=== PATIENT | male | born 1985 | race Caucasian/White ===

== ENCOUNTER 2019-01-27 07:27 | Outpatient (CLI) | payer OTHER ==
--- NOTE | 2019-01-27 13:41 | MRI Report ---
Reason: WEAKNESS Procedure Date: 01/27/2019 Accession Number: [id number] / [id number] Procedure: MRI - Hand RT W/WO CPT Code: Final Report FULL RESULT: EXAM: RIGHT HAND MRI WITHOUT AND WITH CONTRAST EXAM DATE: 01/27/2019 09:00 AM. CLINICAL HISTORY: Weakness, trauma 2-3 months ago. COMPARISON: None. TECHNIQUE: Multiplanar, multisequence T1-weighted and fluid-sensitive sequences of the hand before and after administration of intravenous contrast. IV contrast: 9 cc Gadavist. Other: None. FINDINGS: Bones and articular surfaces: Marrow signal appears within normal limits. No acute fracture identified. No destructive bone lesion. No significant joint effusion. Lobulated partially visualized cystic structure visualized anterior to the first CMC articulation most likely ganglion cyst approximately 1.7 x 0.9 x 1.7 cm. Musculotendinous structures: Visualized flexor and extensor tendons appear intact without evidence of significant tendinosis or tenosynovitis. No significant muscle edema, atrophy or fatty replacement within the field of view. IMPRESSION: 1. Ganglion cyst anterior to the first CMC articulation. RADIA
== END 2019-01-27 07:28 | disposition home or self-care (01) ==
LOC: DI 07:27
DX: M67.441 Ganglion, right hand (principal)
CPT/HCPCS: 73220; A9585

== ENCOUNTER 2022-06-26 09:44 | Outpatient (CLI) | payer OTHER ==
[2022-06-26 10:20] VITALS: BP 130/72
--- NOTE | 2022-06-26 10:20 | SLEEP CARE CONSULTATION ---
Information from patient questionnaire entered by Radha Foster. I have reviewed and concur with the information entered by Radha Foster. This document represents the service I personally performed and the decisions made by me, Echo Stout ARNP. History of Present Illness Service Date and Time: 06/26/2022 0944 Reason for Visit: New patient Chief Complaint: reports: Unrefreshed sleep, Snoring, Excessive daytime sleepiness, Observed pauses in breathing, Frequent awakenings at night Date of Onset: AT LEAST THREE YRS Usual bedtime: 10PM SOMETIMES 11-1130PM Time it takes to fall asleep: DEPENDS FAST CAUSE IM EXHAUSTED Snores at night: Yes Observed to quit breathing while asleep: No Sleeps alone due to snoring: Yes Number of times waking at night: CAN NOT COUNT TO MANY Reasons for waking at night: reports: Snoring, Other (NOISE UNKNOWN). denies: Choking, Gasping for air Toss, Turn, or Twitch while sleeping: Yes Recalls having dreams: No Usually gets out of bed at: 4-5AM Feels refreshed in the morning: No Morning headache: No Sleepy or fatigued during the day: Yes Ever fallen asleep while driving: Yes (drowsy driving, no accidents) Takes day naps: No Prior sleep studies: No Additional HPI information: I had the pleasure of seeing SERGIO MARTINEZ today regarding the possibility of him having a sleep disorder. His current complaints are excessive daytime sleepiness, frequent night awakenings, observed pauses in breathing, snoring and unrefreshed sleep. He wakes up frequently and does not sleep through the night. He wakes up tired all the time. His has told him that he snores loudly and has had to sleep separately to allow her to sleep better. She has also told him that he has stopped breathing when sleeping. He states he also has 12 children and is getting up to check on kids at home. - Parasomnia Symptoms Ever been unable to move upon waking from sleep: No Walks in sleep: No Talks in sleep: Yes Ever acted out dreams in sleep: Yes (jerking away) Ever felt weak in the knees when startled or emotional: No Bothered by creepy, crawly, restless sensations in legs: Yes (sometimes; has back issues too) Problems with memory or concentration: Yes (both) Subjective Initial [place] Sleepiness Scale score: 9 (04/17/22) Past Medical History Past Medical History: reports: Anxiety, Impotence, Depression Social History The patient's occupation is a AM. Patient is and lives in . Have you smoked in the past 12 months: No Cigarettes per day (20/pack): 1 Years of smokin Quit date: 2006 Smoking Pack Years: 0 Alcohol use: No Caffeine use: Yes Caffeine amount and frequency: 3-4CUPS EVERYDAY AT WORK Family History Family history of sleep disordered breathing: Yes Family Hx Sleep Apnea: Father: Snoring Allergies and Home Medications Known drug allergies: No Drug allergies reviewed: Yes Home medication list reviewed: Yes (no daily medications) Review of Systems Weight gain over past 5 years: 40 Weight loss over past 5 years: 20 Cardiovascular: denies: high blood pressure Gastrointestinal: denies: heartburn Neurological: denies: headaches Psychiatric: reports: anxiety. denies: depression Ear/Nose/Throat: reports: dry mouth/throat. denies: tonsillectomy Endocrine: reports: too hot or cold Musculoskeletal: reports: neck pain, back pain Physical Exam Vital signs obtained and entered by: RADHA Paulson MA Blood Pressure: 130/72 (LEFT ARM) Cuff size: regular Heart Rate: 76 O2 Saturation: 98 Height: 5 ft 7 in Weight: 199 lb 3.2 oz Body Mass Index: 31.1 BMI Classification: Obese Neck circumference: 17 Mouth and throat: narrow oropharynx Soft palate: long Hard palate: normal Uvula: normal Uvula visualization: 25% Mallampati Class III Tongue: enlarged in size with teeth sapp on lateral edges Tonsils: 1+ Neck: normal w/o lymphadenopathy or thyromegaly Heart: regular rate and rhythm Lungs: clear bilaterally Impression and Plan 1. Suspected Obstructive Sleep Apnea-Hypopnea Syndrome, as suggested by a history of loud and irregular snoring, observed cessation of breath while asleep, frequent awakening during the night, unrefreshed sleep, cognitive impairment, and excessive daytime sleepiness. Narrow oropharynx and obesity are common predisposing factors for obstructive sleep apnea-hypopnea syndrome. I recommend proceeding to polysomnography to confirm the diagnosis and to assess severity. If the patient has significant sleep disordered breathing, a manual CPAP titration study will also be performed to find the optimal treatment pressure. I informed the patient of what the sleep studies involve and after some discussion, obtained agreement to proceed. The pathophysiology of obstructive sleep apnea-hypopnea syndrome was discussed with the patient and health risks of cardiovascular and cerebrovascular disease if not treated. Risks of drowsy driving discussed in detail and patient advised to avoid long distance driving and to hand assembler for puller over at the first sign of drowsiness. Patient agreed to plan. * Schedule polysomnography * Avoid long distance driving or driving when feeling sleepy. * Avoid alcohol, sedative and muscle relaxant around bedtime. * Attempt to lose weight. * Review instructions provided by trained office staff on how to prepare for the sleep study. * Return for follow-up after sleep study completed. Counseling Topics: Weight loss health impact Visit Type: In Office Time Spent with Patient (minutes): 31 Provider Statement: I spent 100% of the Face to Face Visit with the patient with greater than 50% spent counseling the patient and coordination of care.
== END 2022-06-26 09:45 | disposition home or self-care (01) ==
LOC: SC 09:44
PROVIDERS: ATTEND Nurse Practitioner Family
DX: R06.83 Snoring (principal); G47.8 Other sleep disorders; R06.81 Apnea, not elsewhere classified; G47.10 Hypersomnia, unspecified; R53.83 Other fatigue; E66.9 Obesity, unspecified; Z68.31 Body mass index [BMI] 31.0-31.9, adult
CPT/HCPCS: 99203; 99212

== ENCOUNTER 2022-07-05 20:32 | Outpatient (CLI) | payer OTHER | END 2022-07-05 20:33 | disposition home or self-care (01) | LOC: SC 20:32 | PROVIDERS: ATTEND Nurse Practitioner Family | DX: R06.83 Snoring (principal); G47.8 Other sleep disorders; R06.81 Apnea, not elsewhere classified; G47.10 Hypersomnia, unspecified; R53.83 Other fatigue; E66.9 Obesity, unspecified; Z68.31 Body mass index [BMI] 31.0-31.9, adult | CPT/HCPCS: 95810 ==

== ENCOUNTER 2022-07-30 08:40 | Outpatient (CLI) | payer OTHER ==
[2022-07-30 09:05] VITALS: BP 114/70
--- NOTE | 2022-07-30 09:05 | SLEEP CARE CONSULTATION ---
Information from patient questionnaire entered by Radha Foster. I have reviewed and concur with the information entered by Radha Foster. This document represents the service I personally performed and the decisions made by , Echo Stout ARNP. History of Present Illness Service Date and Time: 07/30/2022 0840 Initial [place] Sleepiness Scale score: 9 (04/17/22) Current [place] Sleepiness Scale score: 9 (07/30/22) Additional HPI information: SERGIO MARTINEZ returns for follow up and results of the recently performed polysomnography. The patient was informed of the following findings: No significant sleep disordered breathing with an average AHI of 0.0 and edward oxygen saturation of 91%. I explained the pathophysiology behind obstructive sleep apnea. Patient does not have sleep apnea and was advised how weight gain could increase the risk of developing sleep apnea in the future. Patient has moderate snoring. Snoring can be reduced by weight loss. Weight loss is best achieved with diet consult. Patient instructed to contact PCP for referral. Snoring can also be treated with an oral appliance from a dentist. Advised to check insurance coverage. In addition, an ENT evaluation can be do to see if other treatment is indicated. Patient was cautioned about risks of drowsy driving until sleepiness symptoms resolve. Sleep Study - Results Type of Sleep Study: Polysomnography (COMPLETED 07/05/22) Prior sleep studies: No Polysomnography/Home Sleep Study results: IMPRESSION: The quality of the study is good. The patient had reduced sleep efficiency due to a few awakenings during the night. The sleep architecture was relatively normal considering the first-night effect. Respiratory monitoring showed no significant sleep disordered breathing (AHI = 0.0) ort hypoxia (edward oxygen saturation of 91%). The patient slept adequately in supine position (supine AHI = 0.0; non- supine = 0.00). Snore was moderate in intensity. There was no significant periodic leg movement of sleep. Cardiac rhythm was normal sinus rhythm without significant arrhythmia. No abnormal behavior (parasomnia) observed during the night. Allergies and Home Medications Known drug allergies: No Drug allergies reviewed: Yes Home medication list reviewed: Yes (no changes) Allergy and home medication list: Allergies No Known Drug Allergies Allergy (Verified 07/29/22 13:19) Review of Systems Review of systems same as previous: Yes (no changes) Physical Exam Vital signs obtained and entered by: RADHA Paulson MA Blood Pressure: 114/70 (LEFT ARM) Cuff size: regular Heart Rate: 78 O2 Saturation: 97 Height: 5 ft 7 in Weight: 199 lb Body Mass Index: 31.1 BMI Classification: Obese Impression and Plan Snoring but no significant sleep disordered breathing. Patient advised that often weight loss will reduce snoring as well as apnea risk. An oral appliance can also be used for snoring. This would require a dental consultation. Patient cautioned not to use other online appliances as can cause bite issues. A list of accredited dentists in [facility] and one local dentist who makes oral appliances is available in office as needed. Patient is advised to check if insurance will cover. An ENT consult can also be helpful to determine if any other treatment is an option. * Attempt to lose weight * Avoid alcohol consumption near bedtime * Return as needed for follow up. Counseling Topics: Weight loss health impact Visit Type: In Office Time Spent with Patient (minutes): 16 Provider Statement: I spent 100% of the Face to Face Visit with the patient with greater than 50% spent counseling the patient and coordination of care.
== END 2022-07-30 08:41 | disposition home or self-care (01) ==
LOC: SC 08:40
PROVIDERS: ATTEND Nurse Practitioner Family
DX: R06.83 Snoring (principal); E66.9 Obesity, unspecified; Z68.31 Body mass index [BMI] 31.0-31.9, adult
CPT/HCPCS: 99212

== ENCOUNTER 2023-08-26 12:34 | Day surgery (SDC) | payer OTHER ==
[2023-08-26] MEDS ORDERED: ceFAZolin 2 GM VIAL ONE (12:40)
[2023-08-26] MEDS: LACTATED RINGERS 1,000 ML IV ONE ×3 (12:53→16:01)
--- NOTE | 2023-08-26 13:27 | ANESTHESIA ---
Pre-Anesthesia VS, & Labs - Diagnosis ventral hernia - Procedure open ventral hernia repair with mesh Height: 5 ft 7 in Weight (kg): 88.9 kg Body Mass Index: 30.7 BMI Classification: Obese - NPO >8 hours Home Medications and Allergies No Known Home Medications 06/26/22 Allergies/Adverse Reactions: Allergies Allergy/AdvReac Type Severity Reaction Status Date / Time No Known Drug Allergies Allergy Verified 07/30/22 08:49 Anes History & Medical History - Anesthetic History Anesthesia Complications: reports: No previous complications - Medical History Cardiovascular: reports: High cholesterol Pulmonary: reports: None Gastrointestinal: reports: None Urinary: reports: None Musculoskeletal: reports: Chronic back pain Endocrine/Autoimmune: reports: None Skin: reports: Eczema Smoking Status: Former smoker Psychosocial: reports: Alcohol (occasionally) History of Cancer?: No Exam General: Alert, Oriented x3 Dental: WNL Mouth Opening: Greater than 4 Fingerbreadths Neck Mobility: Normal Mallampati classification: II Thyromental Distance: greater than 6 cm Respiratory: Lungs clear Cardiovascular: Regular rate Plan Anesthesia Type: General Consent for Procedure(s) Verified and Reviewed: Yes Code Status: Attempt Resuscitation ASA classification: 1-Healthy patient Is this case an emergency?: No
[2023-08-26] MEDS ORDERED: ePHEDrine 50 MG/ML VIAL IVP PRN (13:31)
[2023-08-26] MEDS ORDERED: NALOXONE 0.4 MG/ML VIAL IVP PRN (13:31)
[2023-08-26] MEDS ORDERED: HYDROmorphone 0.5 MG/0.5 ML SYRINGE IVP PRN (13:31)
[2023-08-26] MEDS ORDERED: MORPHINE 2 MG/ML CARPUJECT IVP PRN (13:31)
[2023-08-26] MEDS ORDERED: ONDANSETRON 4 MG/2 ML VIAL IVP PRN (13:31)
[2023-08-26] MEDS ORDERED: METOCLOPRAMIDE 10 MG/2 ML VIAL IVP PRN (13:31)
[2023-08-26] MEDS ORDERED: ATROPINE ABBOJECT 1 MG/10 ML SYRINGE IVP PRN (13:31)
[2023-08-26] MEDS ORDERED: fentaNYL 100 MCG/2 ML VIAL IVP PRN (13:31)
[2023-08-26] MEDS ORDERED: BUPIVACAINE 0.25% PF 30 ML VIAL ONE (13:52)
[2023-08-26] MEDS ORDERED: ROCURONIUM 50 MG/5 ML VIAL ONE (13:54)
[2023-08-26] MEDS ORDERED: MIDAZOLAM 2 MG/2 ML VIAL ONE (13:54)
[2023-08-26] MEDS ORDERED: fentaNYL 100 MCG/2 ML VIAL ONE (13:54)
[2023-08-26] MEDS ORDERED: LIDOCAINE-PF 2% 10 ML AMP SUBQ ONE (13:57)
[2023-08-26] MEDS ORDERED: LACTATED RINGERS 1,000 ML IV SCH (14:00)
--- NOTE | 2023-08-26 14:35 | HISTORY & PHYSICAL EXAMINATION ---
Chief Complaint - Chief Complaint Chief Complaint: here for hernia repair History of Present Illness - History Obtained From Records Reviewed: yes History obtained from: pt Exam Limitations: none - History of Present Illness HPI Comment/Other: hernia at the umbilicus and just above. getting worse History - Past Medical History Cardiovascular: reports: High cholesterol Respiratory: reports: None Endocrine/Autoimmune: reports: None GI: reports: None : reports: None HEENT: reports: None Psych: reports: Anxiety Musculoskeletal: reports: Chronic back pain Derm: reports: Eczema MRSA Hx?: No Meds/Allgy - Home Medications Home Medications: Ambulatory Orders Medication Instructions Recorded Confirmed No Known Home Medications 06/26/22 08/17/23 - Allergies Allergies/Adverse Reactions: Allergies Allergy/AdvReac Type Severity Reaction Status Date / Time No Known Drug Allergies Allergy Verified 07/30/22 08:49 Review of Systems - Other Findings Other Findings: 10 pt ros as above otherwise unremarkable Exam - Physical Exam General Appearance: positive: No acute distress, Alert Eyes Bilateral: positive: PERRL, EOMI Neck: positive: No JVD, Trachea midline Respiratory: positive: No respiratory distress Cardiovascular: positive: Regular rate & rhythm Abdomen: positive: Other (2.5 cm umbilical hernia and 5 mm ventral hernia just cephalad) Neurologic/Psychiatric: positive: Oriented x3 Conclusion/Plan - Problem List (1) Ventral hernia Conclusion/Plan: plan open repair with mesh. parq held and consent obtained
[2023-08-26] MEDS ORDERED: DEXAMETHASONE 4 MG/ML VIAL ONE (15:00)
[2023-08-26] MEDS ORDERED: ONDANSETRON 4 MG/2 ML VIAL ONE (15:00)
[2023-08-26] MEDS ORDERED: ACETAMINOPHEN 1,000 MG/100 ML 1,000 MG/100 ML BAG IV ONE (15:03)
[2023-08-26] MEDS: BUPIVACAINE 0.25% PF 30 ML VIAL SUBQ ONE (15:32)
[2023-08-26] MEDS ORDERED: SUGAMMADEX 200 MG/2 ML VIAL IVP ONE (15:33)
--- NOTE | 2023-08-26 16:05 | OPERATIVE REPORT ---
Operative Report - General Procedure Date: 08/26/23 Planned Procedure: open ventral hernia repair with mesh Pre-Op Diagnosis: 2 cm umbilical hernia and 5 mm ventral hernia just cephalad Procedure Performed: open umbilical hernia repair with mesh Post Op Diagnosis: 2.5 cm umbilical hernia. diastasis. no ventral hernia - Procedure Note Primary Surgeon: chris ruiz Anesthesia Technique: General ET tube, Local Pathology: none Estimated Blood Loss (mL): 2 Drain/Tube Type: Other (none) Indications: symptomatic umbilical hernia Findings: as above 1 x 2 inch polypropylene mesh preperitoneal - Other Other Information/Narrative: The patient was properly identified brought to the operating room and placed in supine position. Sequential compression devices were placed. General end otracheal anesthesia was induced he was prepped and draped in a sterile fashion and given preoperative antibiotics. Local anesthetic was given throughout the procedure. A 1 cm incision was made cephalad of the umbilicus and extended left lateral of the umbilicus. Umbilical skin was excised away from the hernia sac subcutaneous tissue was mobilized back from the fascial defect in all directions. On exam it was thought that he had a 2 cm umbilical hernia and a 5 mm ventral hernia just cephalad of his umbilicus. He only had a 2.5 cm umbilical hernia. The hernia sac or peritoneum was carefully released from the fascial defect edge with cutting current cautery. Subcutaneous space was carefully developed largely with blunt dissection. There was no palpable ventral hernia. He had did have a diastases cephalad of his umbilicus which was reapproximated with imbricating 0 Ethibond suture. Approximately 2 inch tall by 1 inch wide polypropylene mesh was placed preperitoneal and secured with 9 interrupted 0 Ethibond sutures. Fascia was closed over the mesh with 3 additional 0 Ethibond sutures. Umbilical skin was tacked back down to fascia with interrupted 2-0 Vicryl. Subcutaneous tissue was closed with interrupted 2- 0 Vicryl. Buried interrupted subdermal 3-0 Vicryl sutures were then placed. Skin was closed with a running 4-0 Monocryl subcuticular suture. He tolerated the procedure well was awakened and brought to recovery in good condition
--- NOTE | 2023-08-26 17:03 | ANESTHESIA POST OP EVALUATION ---
Anesthesia Post Eval - Post Anesthesia Eval Vitals: Last Vital Signs Temp 36.8 C 08/26/23 16:52 Pulse 94 08/26/23 16:52 Resp 16 08/26/23 16:52 BP 132/82 H 08/26/23 16:52 Pulse Ox 94 08/26/23 16:52 O2 Flow Rate CV Function Including HR & BP: Stable Pain Control: Satisfactory Nausea & Vomiting: Negative Mental Status: Baseline Respiratory Status: Airway Patent Hydration Status: Satisfactory Anesthesia Complications: None
[2023-08-26] MEDS: HYDROcod/ACETAM 5/325 MG TABLET PO PRN (17:54)
[2023-08-26 17:59] VITALS: BP 118/75; O2SAT 95
== END 2023-08-26 18:17 | disposition home or self-care (01) ==
LOC: SDS 12:34 → MS2 16:54 → SDS 18:17
PROVIDERS: ATTEND Surgery
DX: K42.9 Umbilical hernia without obstruction or gangrene (principal); M62.08 Separation of muscle (nontraumatic), other site; E66.9 Obesity, unspecified; Z68.30 Body mass index [BMI] 30.0-30.9, adult; Z87.891 Personal history of nicotine dependence
CPT/HCPCS: 49591; A9270; J0131; J7120